=== PATIENT | male | born 1990 | race Two or more races ===

== ENCOUNTER 2019-02-26 08:46 | Outpatient (CLI) | payer OTHER ==
[~2019-02-26 08:46] MED LIST: AMOX1TAB12 PO
== END 2019-02-26 08:50 | disposition home or self-care (01) ==
LOC: SONOGRAMA 08:46
DX: R22.2 Localized swelling, mass and lump, trunk (principal)

== ENCOUNTER 2019-07-01 06:30 | Day surgery (SDC) | payer OTHER ==
[~2019-07-01 06:30] MED LIST changes: +SYNTHROID50 MCG PO
[2019-07-01] MEDS ORDERED: PERCOCET 5-3251 EACH PO (10:33)
== END 2019-07-01 12:45 | disposition home or self-care (01) ==
LOC: CIR.AMB 06:30 → ADM 08:45 → CIR.AMB 08:45
DX: Q89.2 Congenital malformations of other endocrine glands (principal)